=== PATIENT | male | born 2000 | race Two or more races ===

== ENCOUNTER 2023-08-11 13:06 | Emergency (ER) | payer MEDICAID, OTHER ==
[~2023-08-11] VITALS: Ht 167.6 cm; Wt 60.3 kg
[~2023-08-11 13:06] MED LIST: IBUP-1955 PO
[2023-08-11] MEDS ORDERED: BACI3.5O23 TOP (14:40)
[2023-08-11 14:58] VITALS: BP 120/88; TEMP 98.3; O2SAT 98
== END 2023-08-11 14:58 | disposition home or self-care (01) ==
LOC: ER 13:11
DX: N48.1 Balanitis (principal); Z60.2 Problems related to living alone